=== PATIENT | female | born 1995 | race Caucasian/White ===

== ENCOUNTER 2020-09-06 01:46 | Outpatient (CLI) | payer OTHER, SELFPAY ==
[2020-09-06 20:39] LABS: SARS-CoV-2 RNA PCR Negative
== END 2020-09-06 01:47 | disposition home or self-care (01) ==
LOC: ANHCOVIDDT 01:46
PROVIDERS: PCP Family Medicine; Visit Provider Otolaryngology
DX: Z01.812 Encounter for preprocedural laboratory examination (principal); Z20.828 Contact with and (suspected) exposure to other viral communicable diseases
CPT/HCPCS: 87635; C9803; U0003

== ENCOUNTER 2020-09-09 00:38 | Day surgery (SDC) | payer OTHER, SELFPAY ==
[2020-09-01 13:51] VITALS: BMI 33.4
--- NOTE | 2020-09-08 06:09 | PM.HPGS ---
History of Present Illness History of Present Illness Consent: Risks, benefits, and alternatives have been discussed and questions answered. Patient agrees to proceed with procedure. Chief complaint: adhesions right nasal passage Narrative: Maia Levine is a 25 year old female She has adhesions on the right side of her nose unable to breathe is admitted for lysis of the adhesions Review of Systems Review of Systems: All systems reviewed & are unremarkable except as noted in HPI and below Allergic/Immunologic: Comments: lysis of the adhesion is the plan [facility] Social History Social History (System 08/31/20 @ 09:50 by Denise Zapata) Smoking packs per day: 0.5 Smoking cigarettes per day: 10.0 Years smoked: 3 Smoking pack-years: 1.50 Smoking status: Current every day smoker Tobacco type: cigarettes Alcohol intake: current Drinks per week: 2 Substance use: current Substance use type: marijuana Last use: DAILY Spiritual care concerns: No Meds Home Medications and Allergies Home Medications Medication Instructions Recorded Confirmed Type No Home Medications 09/01/20 09/01/20 History Allergies Allergy/AdvReac Type Severity Reaction Status Date / Time No Known Allergies Allergy Verified 09/01/20 14:05
[2020-09-09] VITALS (7 sets, daily range): BP systolic 109–133; BP diastolic 65–75; PULSE 57–78; RESP 14–20; TEMP 36.3–36.4; O2SAT 100
--- NOTE | 2020-09-09 06:19 | WPDHPUPDATE1 ---
History and Physical Update Update Date/Time: 09/09/20 06:19 History and Physical has been reviewed, including an updated exam of the patient. There are NO changes in the patient's condition. Risks, benefits, and alternatives have been discussed and questions answered. Patient agrees to proceed with procedure.
[2020-09-09] MEDS: LACTATED RINGERS 1,000 ML 30 ML IV CONT (07:10)
[2020-09-09] MEDS: ACETAMINOPHEN 500 MG TABLET 1000 MG PO (07:10)
--- NOTE | 2020-09-09 07:15 | WPDANESEPPF ---
Anes - Initial Pre Proc Eval Procedure: Operation Date: 09/09/20 07:30 Proposed Procedures p Lysis of Adhesions Right Nasal Passage - Warren Triana MD Date/Time: 09/09/20 07:15 Surgeon: Warren Triana MD Pre Op Diagnosis: adhesions right nasal passage Patient Data Age: 25 Gender: F Height: 5 ft 8 in Weight: 99.79 kg Allergies Allergy/AdvReac Type Severity Reaction Status Date / Time No Known Allergies Allergy Verified 09/01/20 14:05 Home Medications Medication Instructions Recorded Confirmed Type No Home Medications 09/01/20 09/01/20 History Patient hx anesthesia problems: none Family hx anesthesia problems: none [facility] Past Medical History Medical History Anxiety Social History Social History Smoking packs per day: 0.5 Smoking cigarettes per day: 10.0 Years smoked: 3 Smoking pack-years: 1.50 Smoking status: Current every day smoker Tobacco type: cigarettes Alcohol intake: current Drinks per week: 2 Substance use: current Substance use type: marijuana Last use: DAILY Spiritual care concerns: No Anes - Eval Final PreProcedure Day of Procedure 09/09/20 07:15 Patient weight: obese Heart: regular rate and rhythm Lungs: clear to auscultation Airway: Mallampati scale class II Neurological: alert and oriented ASA classification: II Emergent: no Anesthetic plan: proceed Anesthesia type and monitoring: general ETT and standard monitoring Informed Consent: The patient's anesthetic plan and its attendant risks and benefits were discussed with the patient/family/POA. Questions were solicited and answers provided to the satisfaction of the patient/family/POA.
[2020-09-09] MEDS: LIDO 1%/EPINEPHRINE 1:100,000 20 ML VIAL INFILTRATE (07:24)
[2020-09-09] MEDS: COCAINE HCL (*CRX) 4% TOP SOLN 4 ML VIAL 1 APPLIC TOPICAL (07:26)
--- NOTE | 2020-09-09 07:40 | PM.PROC ---
Procedure Note - Detailed Date of procedure: 09/09/20 Pre-op diagnosis: adhesions right nasal passage Post-op diagnosis: same Surgeon: Warren Triana MD
--- NOTE | 2020-09-09 07:47 | PM.PROC ---
Procedure Note - Detailed Date of procedure: 09/09/20 Pre-op diagnosis: adhesions right nasal passage Lysis of adhesions on right side Post-op diagnosis: same Procedure performed: Lysis of adhesions with splint placement Description of procedure: Patient was prepped and draped fashion general anesthesia there is injected xylocaine with adrenaline of 4% xylocaine used to pack both sides of the nose the adhesion was lysed with scissors cauterized and splints placed in patient awakened returned to recovery in good condition Anesthesia: GLMA Surgeon: Warren Triana MD Estimated blood loss (mL): 5 Drains: No Packing: No Pathology: none sent Complications: No immediate complications Condition: stable Disposition: PACU Findings: Of thick adhesion on the right side of the nose
== END 2020-09-09 09:03 | disposition home or self-care (01) ==
PROVIDERS: PCP Family Medicine; Visit Provider Otolaryngology
PROC: (CPT 30560; principal; 2020-09-09 07:30)
DX: J34.89 Other specified disorders of nose and nasal sinuses (principal); F17.210 Nicotine dependence, cigarettes, uncomplicated; E66.9 Obesity, unspecified; Z68.34 Body mass index [BMI] 34.0-34.9, adult
CPT/HCPCS: 30560; A9270; J1100; J2250; J2405; J2704; J3010; J7120